=== PATIENT | male | born 1990 | race African-American/Black ===

== ENCOUNTER 2020-11-15 08:42 | Emergency (ER) | payer OTHER ==
[~2020-11-15] VITALS: Ht 182.9 cm; Wt 99.8 kg
[2020-11-15] MEDS ORDERED: HALOPERIDOL LACTATE INJ 5 MG/ML VIAL ONE (08:45)
[2020-11-15] MEDS ORDERED: diphenhydrAMINE HCL 50 MG/ML VIAL ONE (08:45)
[2020-11-15] MEDS ORDERED: LORAZEPAM INJ 2 MG/ML VIAL ONE (08:45)
--- NOTE | 2020-11-15 08:50 | NUR ---
SEEN AND EXAMINED BY .
[2020-11-15] MEDS ORDERED: HALOPERIDOL LACTATE INJ 5 MG/ML VIAL IM ONE (09:00)
[2020-11-15] MEDS ORDERED: LORAZEPAM INJ 2 MG/ML VIAL IM ONE (09:00)
[2020-11-15] MEDS ORDERED: diphenhydrAMINE HCL 50 MG/ML VIAL IM ONE (09:00)
--- NOTE | 2020-11-15 09:07 | NUR ---
PT WAS IN REHAB WITH OUT FOR UNKNOWN TIME CAME BACK SCREAMING , UNSTABLE. POLICE BROUGHT IN PT MEDS GIVEN PER MD ORDER . IV STARTED LEFT AC 20G . LABS AND UA SENT TO LAB
[2020-11-15 09:08] LABS: BASOPHILS % (AUTO) 0.3 % (0.0-2.0); EOSINOPHILS % (AUTO) 1.5 % (0.0-6.0); HEMATOCRIT 38 % (39-51); HEMOGLOBIN 12.4 g/dL (13.5-17.5); LYMPHOCYTES # (AUTO) 2.6 /CMM (0.8-4.8); LYMPHOCYTES % (AUTO) 31.4 % (20.0-44.0); MEAN CORPUSCULAR HGB CONC 32 g/dl (31.0-36.0); MEAN CORPUSCULAR VOLUME 89 fL (80-96); MONOCYTES # (AUTO) 0.6 /CMM (0.1-1.30); NEUTROPHILS # (AUTO) 4.9 /CMM (1.8-8.9); NEUTROPHILS % (AUTO) 59.8 % (43.0-81.0); PLATELET COUNT (AUTO) 252 /CMM (150-450); RED BLOOD CELL COUNT(AUTO) 4.33 MIL/uL (4.5-6.0); WHITE BLOOD COUNT (AUTO) 8.2 K/uL (4.3-11.0)
[2020-11-15 09:21] LABS: BILIRUBIN,URINE SMALL (NEGATIVE); COLOR,URINE DARK YELLOW (YELLOW); LEUKOCYTE ESTERASE ,URINE NEGATIVE (NEGATIVE); NITRITE, URINE NEGATIVE (NEGATIVE); PH,URINE 5.5 (5.0-8.0); PROTEIN,URINE 100 mg/dl (NEGATIVE); UGLUCOSE NEGATIVE (NEGATIVE)
[2020-11-15 09:24] LABS: CALCIUM, SERUM 9.7 mg/dL (8.5-10.1); CARBON DIOXIDE 18 mmol/L (21-32); CHLORIDE 99 mmol/L (98-107); CREATININE 1.8 mg/dL (0.6-1.3); GLUCOSE 146 mg/dL (74-106); POTASSIUM 3.4 mmol/L (3.5-5.1); SODIUM SERUM 139 mmol/L (136-145); UREA NITROGEN, BLOOD 17 mg/dL (7-18)
--- NOTE | 2020-11-15 09:24 | NUR ---
PT CALM TOLERATING SIPS OF WATER VSS
[2020-11-15 09:30] LABS: ALANINE AMINOTRANSFERASE 25 U/L (12-78); ALBUMIN 4.1 g/dL (3.4-5.0); ALCOHOL, BLOOD < 3 mg/dL (0-0); ALKALINE PHOSPHATASE 78 U/L (46-116); ASPARTATE AMINOTRANSFERASE 25 U/L (15-37); BILIRUBIN,DIRECT 0.3 mg/dL (0.0-0.2); TOTAL PROTEIN, SERUM 7.7 g/dL (6.4-8.2)
[2020-11-15 09:33] LABS: ACETAMINOPHEN < 10 ug/ml (10-30)
[2020-11-15] MEDS ORDERED: IV NS 0.9% 3,000 ML IV ONE (10:00)
[2020-11-15 10:07] LABS: BACTERIA,URINE Few /HPF (None Seen); RBC,URINE 0-2 /HPF (0-2); SQUAMOUS EPITHELIAL CELL,UR Rare /HPF (None Seen); WBC,URINE 0-2 /HPF (0-3)
--- NOTE | 2020-11-15 14:05 | NUR ---
pt restraints reposstioned for comfort vss
--- NOTE | 2020-11-15 15:12 | NUR ---
pt sleeping, arousable. on monitor w/ stable vitals. will continue to monitor.
--- NOTE | 2020-11-15 19:20 | NUR ---
pt stable walking and talking vss called mother PT. VERBALIZED UNDERSTANDING OF AFTERCARE INSTRUCTIONS.IV removed. Catheter intact and site benign. Pressure and 4x4 applied to site. No bleeding noted.
[2020-11-15 19:21] VITALS: BP 135/71
== END 2020-11-15 19:22 | disposition home or self-care (01) ==
LOC: ER 08:55
DX: R45.1 Restlessness and agitation (principal); F15.10 Other stimulant abuse, uncomplicated
CPT/HCPCS: 36415; 80048; 80076; 80299; 80307; 80320; 81001; 82550; 82553; 85025; 96360; 96372 ×2; 99285; J1200; J1630; J2060; G0480; J7030